=== PATIENT | male | born 1980 | race Caucasian/White ===

== ENCOUNTER → 2022-01-02 | Outpatient (CLI) | payer BC ==
--- NOTE | 2022-01-02 18:34 | Diagnostic Imaging Report ---
PROCEDURE: MR imaging cervical spine without contrast. TECHNIQUE: Multiplanar, multisequence MR imaging of the cervical spine was performed without contrast. INDICATION: Neck pain and radiculopathy. FINDINGS: There is normal alignment of the cervical spine. The vertebral body heights are maintained. Craniocervical junction relationships and facet alignment are normal. There are no findings of an acute osseous injury. There is no suspicious marrow replacing lesion. The visualized intracranial contents are unremarkable. The cervical cord is normal in caliber without cord signal abnormality or findings of an abnormal epidural process. C2-C3 demonstrates no significant stenosis. C3-C4 demonstrates left-sided facet arthropathy resulting in moderate narrowing of the left neural foramen. There is minimal narrowing of the right. There is no significant canal stenosis. At C4-C5, there is endplate ridging and slight disc bulging with mild narrowing of the central canal of both neural foramen. At the C5-C6 level, there is a large left paracentral disc extrusion which results in high-grade stenosis and flattening of the cervical cord. There are small uncovertebral spurs and there is also facet hypertrophy. There is mild to moderate narrowing of both neural foramen. At the C6-C7 level, there is no significant stenosis. C7-T1 demonstrates no significant stenosis. The soft tissues of the neck demonstrate no acute process. Vascular flow voids are maintained. IMPRESSION: 1. Normal cervical spine alignment without acute or suspicious osseous abnormality. 2. No cord signal abnormality or abnormal epidural process. 3. 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 There is also mild to moderate narrowing of both neural foramen at that level. 4. Less significant degenerative features are detailed above level by level. Dictated by: Dictated on workstation # [id number]
== END ==
LOC: RAD 14:45
PROVIDERS: ATTEND Nurse Practitioner Family
DX: M48.02 Spinal stenosis, cervical region (principal); M47.22 Other spondylosis with radiculopathy, cervical region; M50.121 Cervical disc disorder at C4-C5 level with radiculopathy
CPT/HCPCS: 72141